=== PATIENT | female | born 1950 | race African-American/Black ===

== ENCOUNTER → 2019-04-26 | Outpatient (CLI) | payer OTHER | LOC: HYPER 08:50 | DX: E11.628 Type 2 diabetes mellitus with other skin complications (principal); L30.9 Dermatitis, unspecified; E11.51 Type 2 diabetes mellitus with diabetic peripheral angiopathy without gangrene; I83.10 Varicose veins of unspecified lower extremity with inflammation; I10 Essential (primary) hypertension; M19.90 Unspecified osteoarthritis, unspecified site; E66.01 Morbid (severe) obesity due to excess calories; Z68.42 Body mass index [BMI] 45.0-49.9, adult; Z85.3 Personal history of malignant neoplasm of breast; Z79.4 Long term (current) use of insulin ==

== ENCOUNTER → 2019-05-10 | Outpatient (CLI) | payer OTHER | LOC: ULTRA 05-09 10:00 | DX: M79.89 Other specified soft tissue disorders (principal) ==

== ENCOUNTER → 2019-05-14 | Outpatient (CLI) | payer OTHER | LOC: HYPER 14:06 | DX: E11.628 Type 2 diabetes mellitus with other skin complications (principal); L30.9 Dermatitis, unspecified; I83.10 Varicose veins of unspecified lower extremity with inflammation; I10 Essential (primary) hypertension; E66.01 Morbid (severe) obesity due to excess calories; Z68.42 Body mass index [BMI] 45.0-49.9, adult; Z85.3 Personal history of malignant neoplasm of breast; Z79.4 Long term (current) use of insulin ==

== ENCOUNTER → 2019-05-28 | Outpatient (CLI) | payer OTHER | LOC: HYPER 11:42 | DX: I83.10 Varicose veins of unspecified lower extremity with inflammation (principal); R60.9 Edema, unspecified; L30.9 Dermatitis, unspecified; E66.01 Morbid (severe) obesity due to excess calories; E11.9 Type 2 diabetes mellitus without complications; I10 Essential (primary) hypertension; M19.90 Unspecified osteoarthritis, unspecified site; Z85.3 Personal history of malignant neoplasm of breast; Z68.42 Body mass index [BMI] 45.0-49.9, adult; Z93.3 Colostomy status; Z79.4 Long term (current) use of insulin ==

== ENCOUNTER → 2019-06-18 | Outpatient (CLI) | payer OTHER | LOC: HYPER 10:53 | DX: I83.10 Varicose veins of unspecified lower extremity with inflammation (principal); L30.9 Dermatitis, unspecified; I89.0 Lymphedema, not elsewhere classified; E11.9 Type 2 diabetes mellitus without complications; E66.01 Morbid (severe) obesity due to excess calories; R60.9 Edema, unspecified; K59.00 Constipation, unspecified; I10 Essential (primary) hypertension; M19.90 Unspecified osteoarthritis, unspecified site; Z79.4 Long term (current) use of insulin; Z93.3 Colostomy status; Z85.3 Personal history of malignant neoplasm of breast; Z68.42 Body mass index [BMI] 45.0-49.9, adult ==

== ENCOUNTER → 2019-07-17 | Outpatient (CLI) | payer OTHER | LOC: HYPER 10:10 | DX: I83.10 Varicose veins of unspecified lower extremity with inflammation (principal); L30.9 Dermatitis, unspecified; E66.01 Morbid (severe) obesity due to excess calories; E11.9 Type 2 diabetes mellitus without complications; I89.0 Lymphedema, not elsewhere classified; I10 Essential (primary) hypertension; R60.9 Edema, unspecified; M72.6 Necrotizing fasciitis; M19.90 Unspecified osteoarthritis, unspecified site; Z85.3 Personal history of malignant neoplasm of breast; Z93.3 Colostomy status; Z79.4 Long term (current) use of insulin; Z68.42 Body mass index [BMI] 45.0-49.9, adult; L84 Corns and callosities ==

== ENCOUNTER → 2019-08-13 | Outpatient (CLI) | payer OTHER | LOC: HYPER 13:20 | DX: I83.10 Varicose veins of unspecified lower extremity with inflammation (principal); L84 Corns and callosities; I89.0 Lymphedema, not elsewhere classified; R60.9 Edema, unspecified; L30.9 Dermatitis, unspecified; E11.9 Type 2 diabetes mellitus without complications; E66.01 Morbid (severe) obesity due to excess calories; I10 Essential (primary) hypertension; M72.6 Necrotizing fasciitis; M19.90 Unspecified osteoarthritis, unspecified site; Z85.3 Personal history of malignant neoplasm of breast; Z93.3 Colostomy status; Z68.42 Body mass index [BMI] 45.0-49.9, adult; Z79.4 Long term (current) use of insulin ==

== ENCOUNTER → 2019-08-27 | Outpatient (CLI) | payer OTHER | LOC: HYPER 10:20 | DX: I83.12 Varicose veins of left lower extremity with inflammation (principal); I83.11 Varicose veins of right lower extremity with inflammation; L30.9 Dermatitis, unspecified; E11.628 Type 2 diabetes mellitus with other skin complications; I89.0 Lymphedema, not elsewhere classified; I10 Essential (primary) hypertension; M19.90 Unspecified osteoarthritis, unspecified site; E66.01 Morbid (severe) obesity due to excess calories; Z85.3 Personal history of malignant neoplasm of breast; Z68.42 Body mass index [BMI] 45.0-49.9, adult; Z79.4 Long term (current) use of insulin ==

== ENCOUNTER → 2019-09-11 | Outpatient (CLI) | payer OTHER | LOC: HYPER 12:55 | DX: I87.2 Venous insufficiency (chronic) (peripheral) (principal); L30.9 Dermatitis, unspecified; I89.0 Lymphedema, not elsewhere classified; R60.9 Edema, unspecified; E11.9 Type 2 diabetes mellitus without complications; E66.01 Morbid (severe) obesity due to excess calories; Z68.42 Body mass index [BMI] 45.0-49.9, adult; Z79.4 Long term (current) use of insulin; Z85.3 Personal history of malignant neoplasm of breast ==

== ENCOUNTER → 2019-10-09 | Outpatient (CLI) | payer OTHER | LOC: HYPER 09:33 | PROVIDERS: ATTEND Emergency Medicine | DX: I89.0 Lymphedema, not elsewhere classified (principal); I83.10 Varicose veins of unspecified lower extremity with inflammation; L84 Corns and callosities; L30.9 Dermatitis, unspecified; R60.9 Edema, unspecified; E66.01 Morbid (severe) obesity due to excess calories; E11.9 Type 2 diabetes mellitus without complications; I10 Essential (primary) hypertension; M19.90 Unspecified osteoarthritis, unspecified site; Z68.42 Body mass index [BMI] 45.0-49.9, adult; Z93.3 Colostomy status; Z85.3 Personal history of malignant neoplasm of breast; Z79.4 Long term (current) use of insulin ==

== ENCOUNTER → 2019-11-06 | Outpatient (CLI) | payer OTHER | LOC: HYPER 10-30 16:04 | PROVIDERS: ATTEND Emergency Medicine | DX: I89.0 Lymphedema, not elsewhere classified (principal); L30.9 Dermatitis, unspecified; I83.10 Varicose veins of unspecified lower extremity with inflammation; R60.9 Edema, unspecified; E11.9 Type 2 diabetes mellitus without complications; I10 Essential (primary) hypertension; M19.90 Unspecified osteoarthritis, unspecified site; E66.01 Morbid (severe) obesity due to excess calories; Z68.42 Body mass index [BMI] 45.0-49.9, adult; Z85.3 Personal history of malignant neoplasm of breast; Z79.4 Long term (current) use of insulin ==

== ENCOUNTER 2021-03-19 14:52 | Inpatient (IN) | payer OTHER ==
[~2021-03-19] VITALS: Ht 160 cm; Wt 98.0 kg
--- NOTE | ~2021-03-19 | H ---
[facility] [place] [address] [place] [address] HISTORY AND PHYSICAL Name: NAYA COOK Room #: 442-P ADM IN M.R.#: [id number] Admission: 03/19/21 Attend Phys: Rafa Jackson MD Discharge: Date of : 52 Report #: [id number] THIS REPORT FOR: cc: Faizan Chavez MD, Christopher B. MD Rizzi, Raymond M. DPM ~ DATE OF SERVICE: 03/19/2021 HISTORY OF PRESENT ILLNESS: This is a 71-year-old -Djib[place] female, diabetic, who was admitted to [facility] for a right hallux wound and possible osteomyelitis. PAST MEDICAL HISTORY: Noted for diabetes, hypertension, end-stage renal disease, on dialysis. MEDICATIONS: Listed in the chart and are as follows: Losartan, insulin, amlodipine, hydralazine, pantoprazole, heparin 5000 b.i.d. ALLERGIES: PENICILLIN. PREVIOUS SURGERIES: Noncontributory. FAMILY HISTORY: Noncontributory. SOCIAL HISTORY: The patient has no history of tobacco use or recreational drugs or alcohol. Upper extremity examination has been completed already. PHYSICAL EXAMINATION: GENERAL: Well-developed, well-nourished -Djiboutian female in no acute distress. HEENT: PERRLA. NECK: Supple. No neck adenopathy. CARDIOVASCULAR: Heart regular rate and rhythm. LUNGS: No respiratory distress. EXTREMITIES: Lower extremity shows she has a right hallux, it is swollen and erythematous. She has a previous arterial Dopplers that appears to be adequate blood flow to the right foot. She has some loss of sensation of the right hallux. X-ray and MRI revealed most likely osteomyelitis of the distal phalanx. ASSESSMENT AND PLAN: Diabetic foot ulcer, right hallux with osteomyelitis. Plan is for right hallux amputation or possibly a right partial hallux amputation depending on how the tissue looks intraoperatively. The patient and I discussed the surgery in detail and possible complications [address] [address] HISTORY AND PHYSICAL Name: NAYA COOK Room #: 442-P [facility] IN ..#: [id number] Admission: 03/19/21 Attend Phys: Rafa Jackson MD Discharge: Date of : 52 Report #: [id number] such as chronic wound healing and further surgery. The surgery is scheduled for today at about 2:30 at [facility]. By: 1102 1143 Leonel Flynn DPM /nt
--- NOTE | ~2021-03-19 | O ---
[facility] [place] [address] [place] [address] OPERATIVE REPORT Name: NAYA COOK Room #: 442-P ADM IN M.R.#: [id number] Admission: 03/19/21 Attend Phys: Rafa Jackson MD Discharge: Date of : 52 Report #: [id number] THIS REPORT FOR: cc: Faizan Chavez MD, Christopher B. MD Rizzi, Raymond M. DPM ~ DATE OF SERVICE: 03/21/2021 AGE: 71-year-old. PREOPERATIVE DIAGNOSIS: Right diabetic foot ulcer with osteomyelitis. POSTOPERATIVE DIAGNOSIS: Right diabetic foot ulcer with osteomyelitis. PROCEDURE: Right partial hallux amputation. ANESTHESIA: IV with local block consisting of 14 mL of 0.5% Marcaine. TOURNIQUET: None. DESCRIPTION OF PROCEDURE: The patient was transferred to operating room and placed on the operative table in supine position. IV sedation was administered. Local block was given and the right lower extremity was prepped and draped in the usual sterile manner. A fishmouth incision was made over the right hallux. There was just about adequate bleeding, difficult to tell for sure. I took a just little more than half the toe off until there was better bleeding tissue and remodeled the dorsal and plantar flaps with good closure and also took off the head of the proximal phalanx and debrided the edges of this dull bony prominence. This also created less tension on the closure. Then, it was closed using 2-0 nylon using a simple suture technique and dressed with Xeroform, fluffs, Kerlix and outer Sukumar bandage. The patient tolerated the procedure well and left the operating room in stable condition with vital signs stable and vascular status intact. The patient will be able to weightbear immediately with a postop shoe for necessities. [place] [address] [address] [place] [address] OPERATIVE REPORT Name: NAYA COOK Room #: 442-P [facility] IN ..#: [id number] Admission: 03/19/21 Attend Phys: Rafa Jackson MD Discharge: Date of : 52 Report #: [id number] [facility] will be following up after surgery and you can call me anytime if you have questions. By: 1412 1551 Leonel Flynn DPM /joey
[2021-03-19 14:57] VITALS: BP 142/90
[2021-03-19 16:30] LABS: ABSOLUTE NEUTROPHILS 5.5 thou/uL (1.4-8.2); BASOPHILS 0.9 % (0.0-2.0); EOSINOPHILS 2.1 % (0.0-3.0); HEMATOCRIT 39.6 % (37.0-47.0); HEMOGLOBIN 12.3 gm/dL (12.0-15.0); LYMPHOCYTES 16.8 % (24.0-44.0); MCH 27.9 pg (26.0-34.0); MCV 89.8 fL (80.0-100.0); MONOCYTES 12.9 % (1.0-8.0); PLATELET COUNT 214 thou/uL (150-400); POLYS 67.3 % (36.0-66.0); WBC 8.1 thou/uL (4.0-11.0)
[2021-03-19 16:40] LABS: CALCIUM 8.9 mg/dL (8.5-10.1); CREATININE 6.4 mg/dL (0.6-1.0); POTASSIUM 4.8 mmol/L (3.5-5.1)
[2021-03-20 03:43] LABS: ABSOLUTE NEUTROPHILS 4.4 thou/uL (1.4-8.2); BASOPHILS 0.7 % (0.0-2.0); HEMATOCRIT 37.2 % (37.0-47.0); HEMOGLOBIN 11.4 gm/dL (12.0-15.0); LYMPHOCYTES 14.7 % (24.0-44.0); MCH 27.5 pg (26.0-34.0); MCHC 30.6 g/dL (28.0-37.0); MCV 89.7 fL (80.0-100.0); MONOCYTES 14.9 % (1.0-8.0); PLATELET COUNT 259 thou/uL (150-400); POLYS 66.7 % (36.0-66.0); RBC 4.14 mil/uL (4.20-5.00); WBC 6.7 thou/uL (4.0-11.0)
[2021-03-20 03:51] LABS: CALCIUM 8.7 mg/dL (8.5-10.1); POTASSIUM 5.3 mmol/L (3.5-5.1)
[2021-03-20 03:55] LABS: ALBUMIN 2.9 g/dL (3.4-5.0); PHOSPHORUS 6.1 mg/dL (2.5-4.9)
[2021-03-20 04:14] LABS: CREATININE 7.4 mg/dL (0.6-1.0)
[2021-03-20] MEDS ORDERED: CARVEDILOL25 MG PO (08:46)
[2021-03-20] MEDS ORDERED: COZAAR 25 MG TA25 M1 PO (08:47)
[2021-03-20] MEDS ORDERED: ACETAMINOPHEN500 MG PO (08:47)
[2021-03-20] MEDS ORDERED: ONDANSETRON ODT4 MG PO (08:47)
[2021-03-20] MEDS ORDERED: ARIMIDEX1 MG PO (08:48)
[2021-03-20] MEDS ORDERED: LOPRESSOR50 MG PO (08:48)
[2021-03-20] MEDS ORDERED: FAMOTIDINE20 MG PO (08:49)
[2021-03-20] MEDS ORDERED: AMMONIUM LACTA385 GM TOP (08:49)
[2021-03-20] MEDS ORDERED: FUROSEMIDE 20 M20 MG PO (08:51)
[2021-03-20] MEDS ORDERED: LIDOCAINE-PRILOC5 GM TOP (08:52)
[2021-03-20] MEDS ORDERED: TRAMADOL 50 MG50 MG PO (08:52)
[2021-03-20] MEDS ORDERED: SEVELAMER HCL800 MG PO (08:57)
[2021-03-20] MEDS ORDERED: HYDRALAZINE 2525 MG PO (08:57)
[2021-03-20] MEDS ORDERED: NORVASC10 MG PO (08:57)
[2021-03-20] MEDS ORDERED: LANTUS SUBQ (08:58)
[2021-03-20 14:12] VITALS: BP 154/67
[2021-03-20 14:43] VITALS: BP 118/53
--- NOTE | 2021-03-20 18:45 | NUR ---
ASSUMED PT CARE AT 1515 FROM ED. FINISHED ADMISSION. PT HAS IV SITE ON L ANKLE. TOOK WOUND PICTURE ON R FOOT. PT HAD MRI TODAY. PT IS ON ROOM AIR. PER ED NURSE PT IS NONAMBULATORY AND WHEELCHAIR BOUND. PT DIALYSIS EVERY TUESDAY, TUESDAY AND TUESDAY. PT IS ACCUCHECK ACHS. PT IS FROM ASSISTED LIVING. INFUSED ANTIBIOTICS PER SCHEDULED. WILL CONTINUE TO MONITOR PT. FOLLOW POC.
[2021-03-20 19:30] VITALS: BP 142/80
--- NOTE | 2021-03-21 04:51 | NUR ---
ASSUMED CARE AT 1900, PT LAYING COMFORTABLY IN BED, CALL LIGHT WITH PERSONAL BELONGINGS WITHIN, REPORTS NO PAIN OR DISCOMFORT, COMPLIANT TO TX NO ADVERSE REACTION NOTED, ICED WATER ON THE BED SIDE TABLE, SLEPT THROUGH THE NIGHT WILL CONTINUE TO MONITOR.
--- NOTE | 2021-03-21 04:55 | HC ---
[facility] [place] [address] [place] [address] CONSULTATION Name: NAYA COOK Room #: 442-P ADM IN M.R.#: [id number] Admission: 03/19/21 Attend Phys: Rafa Jackson MD Discharge: Date of : 51 Report #: [id number] THIS REPORT FOR: cc: Faizan Chavez MD, Christopher B. MD Barry, Joseph W. MD ~ DATE OF SERVICE: 03/20/2021 INFECTIOUS DISEASE CONSULTATION ATTENDING PHYSICIAN: Dr. Jackson. REASON FOR EVALUATION: Suspected right distal great toe osteomyelitis. HISTORY OF PRESENT ILLNESS: Chart reviewed. The patient examined. This is a 71-year-old woman with known history of diabetes mellitus, complicated by end-stage renal disease, vasculopathy, who has had pain in her right foot for a number of months. Apparently, she did not experience any significant trauma that she is aware of, did note the pain had increased, was evaluated, actually they removed her great toenail. She is not aware of any systemic illness associated with it. The p.o. intake has been satisfactory. No fevers. No pulmonary or gastrointestinal related complaints. She was evaluated and transferred to the Emergency Room. CRP was elevated at 83.1. Sed rate of 29. Plain film of the foot showed distal phalangeal tuft destruction with some potential gas. Arterial Doppler, no focal stenosis or occlusion. Coronavirus testing was negative. Blood cultures collected at time of admission are sterile thus far. She was empirically started on broad-spectrum therapy with vancomycin and cefepime. Evaluation in progress. ALLERGIES: LISTED TO PENICILLIN. CURRENT MEDICATIONS: As described above, vancomycin, cefepime, pantoprazole, p.r.n. analgesics. PAST MEDICAL HISTORY: Diabetes, complicated by end-stage renal disease, hypertension, also previous history of breast cancer on the right 2011. SOCIAL HISTORY: She is in a facility at this point. FAMILY HISTORY: Noncontributory. REVIEW OF SYSTEMS: Otherwise, unremarkable. PHYSICAL EXAMINATION: GENERAL: She is alert, cooperative, appropriate, appears to be reasonably well nourished. Mild to moderate distress, somewhat chronically ill appearing. [address] [address] CONSULTATION Name: NAYA COOK Room #: 442-P [facility] IN M.R.#: [id number] Admission: 03/19/21 Attend Phys: Rafa Jackson MD Discharge: Date of : 51 Report #: [id number] VITAL SIGNS: Temperature 97.9, pulse 86, respirations 10, blood pressure 154/67. SKIN: Warm, dry, no rashes. HEENT: Otherwise, unremarkable. NECK: Supple. LUNGS: Somewhat diminished overall, otherwise clear breath sounds. HEART: Regular. I do not appreciate a murmur. ABDOMEN: Obese, somewhat firm, nontender. EXTREMITIES: Right lower extremity is tender to palpation, even on the dorsum of the foot. There is a moderate degree of surface inflammatory signs noted and the absence of the great toenail. There is some bloody blackened eschar over the site. There is no particular odor, no drainage at this point. GENITOURINARY AND RECTAL: Deferred. LABORATORY DATA: Blood cultures are sterile thus far. Electrolytes: Sodium 139, potassium 5.3, chloride 101, bicarbonate is 24, anion gap of 14, BUN and creatinine 56 and 7.4, glucose of 272, albumin of 2.9. Estimated GFR of 7. CBC: White count 6.7, H and H 11.4 and 37.2, platelets of 259. Sed rate of 29. CRP of 83.1. ASSESSMENT AND PLAN: Right great toe ulcer site of previous toenail removal, I think the evidence is mixed at this point. Certainly it has been going on for a long time at a site where you can have antecedent injury. I think the 2 options would be surgical intervention, presuming the arterial supply is adequate given the Dopplers, but may need to consider angiogram. She certainly is tender, although it does not appear to be ischemic type pain, more inflammatory. We will continue current therapy. Consider evaluation with MRI to give us additional information. <ELECTRONICALLY SIGNED> By: Bryan Chavez MD 03/21/21 0455 1034 11 Bryan Chavez MD /nt
[2021-03-21 07:32] VITALS: BP 157/79
--- NOTE | 2021-03-21 09:53 | NUR ---
ASSUMED CARE AT 0700. PATIENT IS ALERT AND ORIENETED X3. PATIENT HOPKINS'S, DINKEY BRAKEMAN ARE EQUAL. LUNGS ARE CLEAR AND DEMINISHED, WITH OCCASIONAL WHEEZE. ABD IS SOFT WITH BSX4. PATIENT IS DIALYSIS PATIENT AND IS ON DIALYSIS AT THIS TIME FOR 3.5 HRS. PATIENT IS NON AMBULATORY. PATIENT HAS WOUND ON RIGHT TOE AND CONTINUES ON IV ABT'S. PATIENT HAS DOUBLE LUMIN FOR DIALYSIS. FALL AND SAFETY PROTOCOLS IN PLACE. DENIES PAIN AT THIS TIME. CONTINUES TO PROGRESS SLOWLY TOWARDS D/C GOALS. WILL CONTINUE TO MONITER.
--- NOTE | 2021-03-21 12:14 | NUR ---
DR. JOHNSON HERE TO SEE PATIENT. PLAN FOR PATIENT TO GO TO THE O.R. TODAY. CONSENT SIGNED FOR RIGHT HALLUX AMPUTATION. PROCEDURE EXPLAINED TO PATIENT BY DR. JOHNSON. WILL CONTINUE TO MONITER.
[2021-03-21 15:40] VITALS: BP 150/73
[2021-03-21 19:53] VITALS: BP 133/72
--- NOTE | 2021-03-22 04:53 | NUR ---
ASSUMED CARE AT 1900, PT LAYING COMFORTABLY IN BED, COMPLIANT TO TX, NO ADVERSE REACTION NOTED, CALL LIGHT AND BELONGINGS WITHIN REACH, SLEPT THROUGH THE NIGHT WILL CONTINUE TO MONITOR.
[2021-03-22 07:45] VITALS: BP 111/94
--- NOTE | 2021-03-22 11:46 | NUR ---
ASSUMED CARE OF PT AT 0700 THIS MORNING. PT HAD RT GREATER TO AND SECOND TOE WOUNDS AND AMPUTAION 03/21. DRESSING ON AREA OF FOOT C/D/I WITH CAROLYN WRAP. PT IS A/OX4 AND HAS NO COMPLAINTS OF PAIN. ASSESSMENTS CHARTED AND OTHERWISE UNREMARKABLE. FALL PRECAUTIONS ARE IN PLACE. CALL LIGHT AND OTHER NEEDS ARE IN REACH. MEDS AND TX GIVEN NEEDED AND SCHEDULED. WILL CONTINUE MONITORING AND NOTE ANY CHANGES.
[2021-03-22 15:54] VITALS: BP 149/82
[2021-03-22 20:35] VITALS: BP 101/60
--- NOTE | 2021-03-23 04:10 | NUR ---
UPON SHIFT REPORT, PT BEING ASSISTED FROM BED TO TOILET WITH WHEELCHAIR AND GAIT BELT, GAIT STEADY AND SLOW. LAB NOTIFIED UNIT OF ORDERED LAB DRAW, PT REMAINS WITH POOR ACCESS FOR LAB DRAW DUE TO BILATERAL ARM/LIMB ALERTS. COORDINATED CARE WITH ONCALL TANK PUMPER PANELBOARD, RECEIVED ADVISEMENT TO NOTIFY RENAL FOR ORDERS PT HAS SCHEDULED DIALYSIS 03/23/21, DISCOURAGED TO DRAW FROM ESTABLISHED IV IN LEFT SOLIS, ENCOURAGED TO HANDLE IV WITH CARE. RENAL CONSULT NOTIFIED, SPOKE WITH ANSWERING SERVICE, RECEIVED CALLBACK FROM DR. PHELPS, NO ORDERS RECEIVED, TO FOLLOW UP IN THE MORNING. UPON SHIFT ASSESSMENT, PT SLEEP INTERRUPTED, PT AWAKENS AOX4. PT DENIES PAIN AND SOB WHILE ON ROOM AIR. PT TOLERATING PO INTAKE OF FLUIDS AND RENAL DIET WITHOUT ISSUE. PT WITHOUT NAUSEA OR EMESIS. PT VOIDING PER TOILET, RESTING IN BED OTHERWISE. FREQUENT REPOSITIONING ENCOURAGED WHILE IN BED, PT NOTED TO SHIFT SLIGHTLY ON HER OWN, REFUSING REPOSITIONING ASSISTANCE. NONPITTING EDEMA NOTED TO BLE. SENSATION INTACT, CAPILLARY REFILL LESS THAN 3SEC, PEDAL PULSES FAINT, RADIAL PULSES PALPABLE. PT ENCOURAGED TO NOTIFY STAFF FOR ALL NEEDS, CALL LIGHT WITHIN REACH, BED ALARM ON, BED LOCKED IN LOWEST POSITION, FREQUENT MONITORING WILL CONTINUE.
[2021-03-23 08:42] LABS: HEMATOCRIT 31.9 % (37.0-47.0)
[2021-03-23 08:48] LABS: POTASSIUM 4.2 mmol/L (3.5-5.1)
[2021-03-23 08:56] VITALS: BP 167/91
--- NOTE | 2021-03-23 09:30 | NUR ---
Assess due to dx of osteomyelitis. Right diabetic toe ulcer, s/p hallux amputation. Hx ESRD with dialysis. On renal diet, tolerating meals well. Receives phos binder. BG [phone] add carb control to diet order. No signficant wt change. Low nutrition risk
[2021-03-23] MEDS ORDERED: CEFUROXIME500 MG PO (09:37)
[2021-03-23 11:42] VITALS: BP 167/91
--- NOTE | 2021-03-23 11:46 | NUR ---
RE-ASSUMED CARE OF PT AT 0700 THIS MORNING. PT IA A/OX4, STATED SHE SLEPT WELL AND HAD NO COMPLAINTS. ASSESSMENTS NOTED IN CHART AND OTHERWISE UNREMARKABLE. PT STANDS AND PIVOTS TO WHEELCHAIR TO GO TO RESTROOM. FALL PRECAUTIONS ARE IN PLACE. CALL LIGHT AND OTHER NEEDS ARE IN REACH. PT IS HAVING DIALYSIS. MEDS AND TX GIVEN NEEDED AND SCHEDULED. WILL CONTINUE MONITORING AND NOTE ANY CHANGES. DR. JOHN STATED PT CAN BE DISCHARGED AFTER DIALYSIS. DISCHARGE PAPERWORK SIGNED BY PT AND EDUCATION MATERIAL WITH PT.
--- NOTE | 2021-03-23 12:00 | NUR ---
HAMILTON visited with agustin at bedside, she receiving dialysis in room. A & o x person , place, and time. Pleasant and able to make her needs known. She goes to [facility] - 9AM. She lives at [facility]. Gets 3 meals, uses wheel chair for mobility. Assist with her medication and bathing if needed. No longer drives. Had [facility] in past. Agreeable to if needed for dc. Referral sent to [facility].
--- NOTE | 2021-03-23 13:38 | NUR ---
ORDERS FOR EVAL AND TREAT. DR. JOHNSON STATES Pt CAN WALK WITH POST-OP SHOE FOR NECCESSITY. POST-OP SHOE NOT ORDERED AND Pt DISCHARGING HOME WITH HOME HEALTH TODAY. SPOKE WITH NURSING WHO STATES THEY WILL ORDER ONE FOR Pt. FOR HOME. FORMAL EVAL NOT COMPLETED BUT THERAPIST RECOMMENDING HOME HEALTH AND Pt CONCURS. OBSERVED HER STAND FROM CHAIR WITHOUT DIFFICULTY BUT SHOE NOT AVAILABLE FOR FORMAL EVAL.
[2021-03-23 17:00] VITALS: BP 167/91
--- NOTE | 2021-03-23 17:09 | NUR ---
[facility] INDICATED THEY COULDN'T ACCEPT PT THEY ARE AT [place]. CM FAXED REFERRAL TO [facility]. THEY CAN ACCPET. PT'S NEPHEW COULDN'T TRANSPORT. [facility] TO PICK PT UP. ORDERS SENT TO THE [facility] AND [facility]. NO OTHER CM INTERVENTION INDICATED. CASE CLOSED.
--- NOTE | 2021-03-25 16:06 | PATH ---
[facility] [place] [address] PATHOLOGY RPT PROCEDURE Name: RACHAEL COOK Room #: 442-P DIS IN M.R.#: [id number] Admission: 03/19/21 Date of : 52 Discharge: 03/23/21 Report #: [id number] Path Case #: [id number] [facility] Accession Number: [id number] . 01 Material submitted: . great toe - RIGHT GREAT TOE. Modifiers: right . 01 Clinical history: . AMPUTATION OF TOES INCISION AND DRAINAGE EXTREMITY WITH DIABETIC FOOT ULCER WITH OSTEOMYELITIS . 02 Diagnosis: Right great toe, amputation: - Skin and soft tissue with ulcerative/gangrenous necrosis. - Underlying bone with acute osteomyelitis. - Surgical margin including skin, soft tissue and bone viable and negative for inflammation or malignancy. (ANK:tee; 03/25/2021) QMS 03/25/2021 1412 Local . 02 Electronically signed: . Ivette Carranza MD, Pathologist NPI- [id number] . 01 Gross description: . The specimen is received in formalin, labeled "Rachael Cook, right great toe". Received is an amputated digit measuring 3.2 x 2.8 x 2.2 cm in greatest dimensions. The bone margin is smooth and concave in appearance, consistent with disarticulation. The bone and soft tissue margins are inked black. The nail is absent. The dorsal aspect of the specimen displays an ill-defined, irregular in contour and saenz-valladares lesion measuring 1.6 x 1.0 cm, which is 0.3 cm from the closest skin margin. A full-thickness longitudinal cross-section is submitted in cassette A1, following decalcification. . Also received within the specimen container are multiple segments of pale valladares skin and a separately submitted segment of bone measuring 3.1 x 2.5 x 1.0 cm in aggregate dimensions. The segment of bone displays one jagged margin and one smooth, convex, disarticulated margin. The jagged margin is inked black. The specimen is submitted representatively in cassettes A2 and A3, with cassette A2 submitted following decalcification. (CAA; 03/23/2021) QAC/QAC 03/23/2021 1646 Local . 02 Pathologist provided ICD-10: M86.171, I96 [address] [address] PATHOLOGY RPT PROCEDURE Name: RACHAEL COOK Room #: 442-P DIS IN M.R.#: [id number] Admission: 03/19/21 Date of : 52 Discharge: 03/23/21 Report #: [id number] Path Case #: [id number] . 02 [facility] . [id number], [id number] Specimen Comment: A courtesy copy of this report has been sent to [phone], [phone] Specimen Comment: [phone], Specimen Comment: Report sent to , DR LEONARDO / DR BRADSHAW Performed at: [address], [place] [id number] MD Nitin James MD Phone: [phone] Performed at: [address] [id number] MD Kamini Stratton MD Phone: [phone]
== END 2021-03-23 16:30 | disposition home health service (06) | DRG 617 ==
LOC: ER 14:52 → 4S 18:45 → EROBS 18:45 → 4S 03-20 14:50
PROVIDERS: Nurse Practitioner; Podiatrist Foot & Ankle Surgery; Student in an Organized Health Care Education/Training Program; ADMIT Hospitalist; ATTEND Hospitalist
PROC: 0Y6P0Z3 Detachment at Right 1st Toe, Low, Open Approach (ICD-10-PCS; principal; 2021-03-21)
PROC: 5A1D70Z Performance of Urinary Filtration, Intermittent, Less than 6 Hours Per Day (ICD-10-PCS; 2021-03-22)
DX: E11.69 Type 2 diabetes mellitus with other specified complication (principal); M86.171 Other acute osteomyelitis, right ankle and foot; I12.0 Hypertensive chronic kidney disease with stage 5 chronic kidney disease or end stage renal disease; N18.6 End stage renal disease; E11.621 Type 2 diabetes mellitus with foot ulcer; Z20.822 Contact with and (suspected) exposure to COVID-19; E11.22 Type 2 diabetes mellitus with diabetic chronic kidney disease; L97.519 Non-pressure chronic ulcer of other part of right foot with unspecified severity; E66.9 Obesity, unspecified; Z68.38 Body mass index [BMI] 38.0-38.9, adult; Z85.3 Personal history of malignant neoplasm of breast; Z88.0 Allergy status to penicillin; Z99.2 Dependence on renal dialysis
CPT/HCPCS: 10195; 32100; 50101; 50386; 50951; 56525; 57091; 62110; 62850; 70005

== ENCOUNTER → 2021-03-19 | Outpatient (CLI) | payer OTHER ==
[~2021-03-19] MED LIST: ACETAMINOPHEN500 MG PO; AMMONIUM LACTA385 GM TOP; ARIMIDEX1 MG PO; CARVEDILOL25 MG PO; CEFUROXIME500 MG PO; COZAAR 25 MG TA25 M1 PO; FAMOTIDINE20 MG PO; FUROSEMIDE 20 M20 MG PO; HYDRALAZINE 2525 MG PO; LANTUS SUBQ; LIDOCAINE-PRILOC5 GM TOP; LOPRESSOR50 MG PO; NORVASC10 MG PO; ONDANSETRON ODT4 MG PO; SEVELAMER HCL800 MG PO; TRAMADOL 50 MG50 MG PO
== END ==
LOC: HYPER 12:56
PROVIDERS: ATTEND Emergency Medicine
DX: E11.621 Type 2 diabetes mellitus with foot ulcer (principal); L97.512 Non-pressure chronic ulcer of other part of right foot with fat layer exposed; E11.52 Type 2 diabetes mellitus with diabetic peripheral angiopathy with gangrene; I96 Gangrene, not elsewhere classified; I89.0 Lymphedema, not elsewhere classified; E11.40 Type 2 diabetes mellitus with diabetic neuropathy, unspecified; R60.9 Edema, unspecified; E66.01 Morbid (severe) obesity due to excess calories; I87.2 Venous insufficiency (chronic) (peripheral); I10 Essential (primary) hypertension; M72.6 Necrotizing fasciitis; M19.90 Unspecified osteoarthritis, unspecified site; Z79.4 Long term (current) use of insulin; Z99.2 Dependence on renal dialysis; Z93.3 Colostomy status; Z85.3 Personal history of malignant neoplasm of breast; Z68.42 Body mass index [BMI] 45.0-49.9, adult

== ENCOUNTER → 2021-03-26 | Outpatient (CLI) | payer OTHER | LOC: HYPER 08:09 | PROVIDERS: ATTEND Emergency Medicine | DX: T87.89 Other complications of amputation stump (principal); E11.621 Type 2 diabetes mellitus with foot ulcer; L97.512 Non-pressure chronic ulcer of other part of right foot with fat layer exposed; I87.2 Venous insufficiency (chronic) (peripheral); E11.52 Type 2 diabetes mellitus with diabetic peripheral angiopathy with gangrene; I96 Gangrene, not elsewhere classified; E11.40 Type 2 diabetes mellitus with diabetic neuropathy, unspecified; I89.0 Lymphedema, not elsewhere classified; R60.9 Edema, unspecified; E11.22 Type 2 diabetes mellitus with diabetic chronic kidney disease; I12.0 Hypertensive chronic kidney disease with stage 5 chronic kidney disease or end stage renal disease; N18.6 End stage renal disease; M19.90 Unspecified osteoarthritis, unspecified site; E66.01 Morbid (severe) obesity due to excess calories; Z68.42 Body mass index [BMI] 45.0-49.9, adult; Z85.3 Personal history of malignant neoplasm of breast; Z79.4 Long term (current) use of insulin; Z99.2 Dependence on renal dialysis; Z79.899 Other long term (current) drug therapy; Z93.3 Colostomy status; Y83.5 Amputation of limb(s) as the cause of abnormal reaction of the patient, or of later complication, without mention of misadventure at the time of the procedure ==

== ENCOUNTER 2021-03-27 09:01 | Emergency (ER) | payer OTHER ==
[~2021-03-27] VITALS: Ht 165.1 cm; Wt 122.5 kg
--- NOTE | ~2021-03-27 | EMS ---
[facility] [address] [place] [address] EMS Patient Care Report Name: NAYA COOK Room #: REG ESPERANZA Parsons#: [id number] Admission: 03/27/21 Attend Phys: Discharge: Date of : 51 Report #: [id number] THIS REPORT FOR: //name// Report Transmitted: 03/27/2021 09:19 EMS Care Summary [place], [place]/[facility] Incident [id number] @ 03/27/2021 08:03 Incident [address] [place] [address] [address] [id number] Patient NAYA COOK Female, 71 Years 1950 Patient Address [address] [place] [address] [address] [place] [address] Patient History Diabetes,Hypertension (HTN),Kidney/Renal Failure,Hyperlipidemia,Gastro-Esophageal Reflux Disease (GERD),Morbid Obesity,Edema,Hypothyroidism, Patient Allergies Penicillin allergy,Dye allergy, Patient Medications Carvedilol, Metoprolol, Losartan, Lantus, Hydralazine, Amlodipine, Famotidine, Anastrozole, Acarbose, Hydroxyzine, Chief Complaint vomiting Disposition Transported No Lights/Bells Dispatch Reason Sick Person Transported To [facility] [address] [place] [address] EMS Patient Care Report Name: NAYA COOK Room #: REG ESPERANZA Parsons#: [id number] Admission: 03/27/21 Attend Phys: Discharge: Date of : 52 Report #: [id number] Narrative M36 dispatched on a sick person. M36 arrived to find PT seated on ground next to bed inside of correction. PT stated vomiting as chief complaint. PT stated her pain medicine she takes before bed makes her nauseas. PT also found to be incontinent of feces. PT stated she normally is able to transfer herself from bed to wheelchair, but was unable to do so today and ended up on the floor. Nursing staff stated PT not acting herself. P45 called for lifting assistance. PT rolled onto alfonso blast furnace blower and lifted onto stretcher by fire and EMS. PT secured with seatbelts and blanket. PT stated "I do not want to go to the hospital." PT contacted her POA and they advised her to go to the hospital. PT consented to transport. PT vitals monitored during transport. PT report given. PT moved to hospital bed via four person sheet lift. PT care and belongings transferred to ER staff at [facility] without incident. M36 placed back in service. Initial Vitals @08:27P: 70,R: 16,BP: 154/82,Pain: 0/10,GCS: 14,Glucose: 193,SpO2: 94,Revised Trauma: 12, @08:43P: 78,R: 14,BP: 166/83,Pain: 0/10,GCS: 14,Revised Trauma: 12, @08:55P: 76,R: 14,BP: 146/110,Pain: 0/10,GCS: 14,SpO2: 95,Revised Trauma: 12, Assessments @08:24MENTAL:Person Oriented,Place Oriented,Time Oriented,Confused,SKIN:HEENT:LUNG SOUNDS:General: Diarrhea,General: Vomiting,General: Nausea,ABDOMEN:General: Diarrhea,General: Vomiting,General: Nausea,PELVIS//GI:Incontinence,EXTREMITIES:Left Leg: Other,PULSE:Radial: 2+ Normal,NEURO:Other, Impression Vomiting Procedures @08:24 ALS Assessment Response: UnchangedSucceeded Timeline 07:53,Call Received 07:53,Dispatch Notified 08:03,Dispatched 08:03,En Route 08:23,On Scene 08:24,At Patient 08:24,ALS Assessment,Response: UnchangedSucceeded, 08:27,BP: 154/82 M,PULSE: 70,RR: 16 R,SPO2: 94 Ox,ETCO2: ,B,PAIN: 0,GCS: 14, [address] [address] EMS Patient Care Report Name: NAYA COOK Room #: REG ER [facility].#: [id number] Admission: 03/27/21 Attend Phys: Discharge: Date of : 52 Report #: [id number] 08:43,BP: 166/83 M,PULSE: 78,RR: 14 R,SPO2: Ox,ETCO2: ,BG: ,PAIN: 0,GCS: 14, 08:46,Depart Scene 08:55,BP: 146/110 M,PULSE: 76,RR: 14 R,SPO2: 95 Ox,ETCO2: ,BG: ,PAIN: 0,GCS: 14, 08:58,At Destination 09:14,Call Closed Disclaimer v1.1 Copyright 2020 [facility] This EMS Care Summary contains data elements from the applicable legal record (which may be displayed differently). It is designed to provide pertinent information for the following purposes: continuity of care, clinical quality, and state data reporting. The complete legal record is available to ED staff and administrators of the receiving hospital in [email or web address]'s Patient Tracker. All data is provided "as is."
[2021-03-27 12:16] LABS: ABSOLUTE NEUTROPHILS 3.7 thou/uL (1.4-8.2); BASOPHILS 0.8 % (0.0-2.0); EOSINOPHILS 3.9 % (0.0-3.0); HEMATOCRIT 36.4 % (37.0-47.0); HEMOGLOBIN 11.4 gm/dL (12.0-15.0); LYMPHOCYTES 18.5 % (24.0-44.0); MCH 27.6 pg (26.0-34.0); MCHC 31.3 g/dL (28.0-37.0); MONOCYTES 13.4 % (1.0-8.0); PLATELET COUNT 248 thou/uL (150-400); POLYS 63.4 % (36.0-66.0); RBC 4.13 mil/uL (4.20-5.00); RDW 18.3 % (10.5-14.5); WBC 5.8 thou/uL (4.0-11.0)
[2021-03-27 12:30] LABS: CALCIUM 8.6 mg/dL (8.5-10.1); CREATININE 8.1 mg/dL (0.6-1.0); POTASSIUM 4.6 mmol/L (3.5-5.1)
[2021-03-27 12:34] LABS: ALBUMIN 2.7 g/dL (3.4-5.0); TOTAL BILIRUBIN 0.2 mg/dL (0.2-1.0)
[2021-03-27 14:17] LABS: ANISOCYTOSIS 1+; POIKILOCYTOSIS 1+
[2021-03-27 14:59] VITALS: BP 144/82
--- NOTE | 2021-03-28 11:52 | EKG ---
[address] [place] [place] [address] ELECTROCARDIOGRAM REPORT Name: NAYA COOK [facility] [id number] Admission: 03/27/21 Attend Phys: Discharge: 03/27/21 Date of : 52 Report #: [id number] [facility] ED Test Date: 2021-03-27 Test Time: 11:06:17 Pat Name: NAYA COOK Department: Room: Gender: F Muck Boss: [id number] : 1950 Requested By: Emanuel Howell Order Number: [id number] MD: Marco Neely Measurements Intervals Jackson Rate: 74 P: 29 MD: 181 QRS: 34 QRSD: 80 T: 21 QT: 410 QTc: 455 Interpretive Statements Sinus rhythm No significant abnormality No previous ECG available for comparison Electronically Signed On 03-28-2021 11:52:24 TOOL CARRIER by Marco Neely [email or web address] <ELECTRONICALLY SIGNED> By: Marco Neely MD, [facility] 03/28/21 1152 1106 1106 Marco Neely MD, FACC /EPI
--- NOTE | 2021-03-28 11:58 | EKG ---
[address] [place] [address] [place] [address] ELECTROCARDIOGRAM REPORT Name: NAYA COOK [facility] [id number] Admission: 03/27/21 Attend Phys: Discharge: 03/27/21 Date of : 52 Report #: [id number] [facility] ED Test Date: 2021-03-27 Test Time: 13:47:11 Pat Name: NAYA COOK Department: Room: Gender: F Stock Control Supervisor: HERNÁN : 1950 Requested By: Emanuel Howell Order Number: [id number] MD: Marco Neely Measurements Intervals [employer] Rate: 203 P: CT: QRS: 33 QRSD: 97 T: QT: 213 QTc: 392 Interpretive Statements Atrial fibrillation with rapid V-rate Consider inferior infarct ST depression, probably rate related Compared to ECG 03/27/2021 11:06:17 Myocardial infarct finding now present ST (T wave) deviation now present Sinus rhythm no longer present Electronically Signed On 03-28-2021 11:57:28 CHIEF DEVELOPMENT OFFICER by Marco Neely [email or web address] <ELECTRONICALLY SIGNED> By: Marco Neely MD, [facility] 03/28/21 1157 134 46 Marco Neely MD, [facility] /EPI
== END 2021-03-27 15:05 | disposition home or self-care (01) ==
LOC: ER 09:01
PROVIDERS: Emergency Medicine
DX: R11.2 Nausea with vomiting, unspecified (principal); R19.7 Diarrhea, unspecified; I12.0 Hypertensive chronic kidney disease with stage 5 chronic kidney disease or end stage renal disease; E10.22 Type 1 diabetes mellitus with diabetic chronic kidney disease; N18.6 End stage renal disease; Z99.2 Dependence on renal dialysis; Z85.3 Personal history of malignant neoplasm of breast; Z79.891 Long term (current) use of opiate analgesic; Z79.899 Other long term (current) drug therapy; Z79.4 Long term (current) use of insulin; Z88.0 Allergy status to penicillin

== ENCOUNTER → 2021-04-28 | Outpatient (CLI) | payer OTHER | LOC: HYPER 09:19 | PROVIDERS: ATTEND Emergency Medicine | DX: T87.89 Other complications of amputation stump (principal); E11.621 Type 2 diabetes mellitus with foot ulcer; L97.512 Non-pressure chronic ulcer of other part of right foot with fat layer exposed; I87.2 Venous insufficiency (chronic) (peripheral); E11.52 Type 2 diabetes mellitus with diabetic peripheral angiopathy with gangrene; I96 Gangrene, not elsewhere classified; E11.40 Type 2 diabetes mellitus with diabetic neuropathy, unspecified; I89.0 Lymphedema, not elsewhere classified; R60.9 Edema, unspecified; E11.22 Type 2 diabetes mellitus with diabetic chronic kidney disease; I12.0 Hypertensive chronic kidney disease with stage 5 chronic kidney disease or end stage renal disease; N18.6 End stage renal disease; M19.90 Unspecified osteoarthritis, unspecified site; E66.01 Morbid (severe) obesity due to excess calories; Z68.42 Body mass index [BMI] 45.0-49.9, adult; Z85.3 Personal history of malignant neoplasm of breast; Z79.4 Long term (current) use of insulin; Z99.2 Dependence on renal dialysis; Z93.3 Colostomy status; Y83.5 Amputation of limb(s) as the cause of abnormal reaction of the patient, or of later complication, without mention of misadventure at the time of the procedure ==